=== PATIENT | male | born 1980 | race Two or more races ===

== ENCOUNTER 2024-03-01 12:45 | Inpatient (IN) | payer MEDICAID, OTHER ==
[~2024-03-01] VITALS: Ht 177.8 cm; Wt 114.5 kg
--- NOTE | 2024-03-01 13:50 | DVH ---
Date: 03/01/2024 01:15 PM Examination: XY KUB ABDOMEN SINGLE VIEW History: constipation Comparison: None TECHNIQUE: Frontal views of the abdomen was obtained. FINDINGS: Bowel gas pattern is unremarkable. Large stool burden. The lung bases are unremarkable. No acute osseous abnormality identified. IMPRESSION: Nonobstructive bowel gas pattern. Large stool burden.
[2024-03-01 14:09] LABS: Basophils # (auto) 0.1 10 ^3/uL (0-0.2); Basophils % (auto) 0.7 % (0.0-2.0); Eosinophils # (auto) 0.1 10 ^3/uL (0-0.8); Eosinophils % (auto) 1.2 % (0.0-7.0); Hemoglobin 15.1 g/dL (13.5-17.5); Lymphocytes % (auto) 34.1 % (10.0-50.0); Mean Corpuscular Hemoglobin 30.2 pg (28.0-32.0); Mean Corpuscular Hgb Conc. 34.4 g/dL (32.0-36.0); Mean Corpuscular Volume 87.8 fL (80.0-100.0); Monocytes # (auto) 0.7 10 ^3/uL (0-1.3); Monocytes % (auto) 7.6 % (0.0-12.0); Neutrophils # (auto) 4.9 10 ^3/uL (1.6-8.6); Neutrophils % (auto) 56.4 % (37.0-80.0); Nucleated Red Blood Cells % 0.1 %; Platelet Count (auto) 330 10^3/uL (140-450); Red Blood Cells 5.01 10^6/uL (4.5-5.90); Red Cell Distribution Width 14.2 % (11.8-14.3); White Blood Cell 8.7 10^3/uL (4.4-10.8)
[2024-03-01 14:16] LABS: Chloride 106 mmol/L (98-107); Sodium 141 mmol/L (136-145)
[2024-03-01 14:17] LABS: Anion Gap 6 (5-15); Calcium 10.2 mg/dL (8.7-10.4); Carbon Dioxide 29 mmol/L (20-31)
[2024-03-01 14:22] LABS: BUN/Creatinine Ratio 14.9 (10.0-20.0); Blood Urea Nitrogen 13 mg/dL (9-23); Glucose 101 mg/dL (74-106)
--- NOTE | 2024-03-01 15:55 | ED.PDOC ---
GI ASSESSMENT HPI Comments [age] he presents with a chief complaint of rectal bleeding. Reports he was constipated for two days and after self disimpact patient patient began to bleed Last bowel movement was yesterday and reported bright red blood No associated symptoms Denies fevers chills night sweats unintentional weight loss Denies nausea vomiting diarrhea Denies sick contact with similar symptoms Denies new foods/medications Chief Complaint: Constipation Time Seen by MD: 13:07 Primary Care Provider: NONE Reviewed Notes: Nurses Notes, Medications, Allergies Allergies: Coded Allergies: Penicillins (Verified Allergy, Unknown, 03/01/24) Information Source: Patient Mode of Arrival: Ambulatory Family History Family History: Reviewed,noncontributory to illness Social History Smoker: Non-Smoker Alcohol: Denies ETOH Use Drugs: Denies Drug Use All Other Systems: Reviewed and Negative (Per HPI) Physical Exam General Appearance: No Apparent Distress, Normal HEENT: Normal ENT Inspection, Pharynx Normal, TMs Normal Neck: Full Range of Motion, Non-Tender, Normal, Normal Inspection Respiratory: Chest Non-Tender, Lungs Clear, No Accessory Muscle Use, No Respiratory Distress, Normal Breath Sounds Cardiovascular: No Edema, No JVD, No Murmur, No Gallop, Normal Peripheral Pulses, Regular Rate/Rhythm Breast Exam: Deferred Gastrointestinal: No Organomegaly, Non Tender, No Pulsatile Mass, Normal Bowel Sounds, Soft Genitalia: Deferred Pelvic: Deferred Rectal: Other (No rectal tone. Bright red blood around the rectum) Extremities: No calf tenderness, Normal capillary refill, Normal inspection, Normal range of motion, Non-tender, No pedal edema Musculoskeletal : Apperance: Normal Neurologic: Alert, garment fitter II-XII nml as Tested, No Motor Deficits, Normal Affect, Normal Mood, No Sensory Deficits Cerebellar Function: Normal Reflexes: Normal Skin: Dry, Normal Color, Warm Lymphatic: No Adenopathy Was a procedure done? Was a procedure done?: No GI differential Dx Differential Diagnosis: Constipation, Anemia, Other (fissure,) X-Ray, Labs, Meds, VS Vital Signs Date Time Temp Pulse Resp B/P (MAP) Pulse Ox O2 Delivery O2 Flow Rate FiO2 03/01/24 15:44 72 18 98 Room Air 03/01/24 15:44 98.2 84 24 144/84 (104) 98 98.2 03/01/24 13:00 98.2 72 18 149/91 (110) 98 Lab Test 03/01/24 16:00 03/01/24 13:50 Range/Units White Blood Count Pending 8.7 4.4-10.8 10^3/uL Red Blood Count Pending 5.01 4.5-5.90 10^6/uL Hemoglobin Pending 15.1 13.5-17.5 g/dL Hematocrit Pending 44.0 41.0-53.0 % Mean Corpuscular Volume Pending 87.8 80.0-100.0 fL Mean Corpuscular Hemoglobin Pending 30.2 28.0-32.0 pg Mean Corpuscular Hemoglobin Concent Pending 34.4 32.0-36.0 g/dL Red Cell Distribution Width Pending 14.2 11.8-14.3 % Platelet Count Pending 330 140-450 10^3/uL Mean Platelet Volume Pending 7.4 6.9-10.8 fL Neutrophils (%) (Auto) Pending 56.4 37.0-80.0 % Lymphocytes (%) (Auto) Pending 34.1 10.0-50.0 % Monocytes (%) (Auto) Pending 7.6 0.0-12.0 % Basophils (%) (Auto) Pending 0.7 0.0-2.0 % Neutrophils # (Auto) Pending 4.9 1.6-8.6 10 ^3/uL Lymphocytes # (Auto) Pending 3.0 0.4-5.4 10 ^3/uL Monocytes # (Auto) Pending 0.7 0-1.3 10 ^3/uL Sodium Level Pending 141 136-145 mmol/L Potassium Level Pending 4.0 3.5-5.1 mmol/L Chloride Level Pending 106 98-107 mmol/L Carbon Dioxide Level Pending 29 20-31 mmol/L Anion Gap Pending 6 5-15 Blood Urea Nitrogen Pending 13 9-23 mg/dL Creatinine Pending 0.87 0.700-1.30 mg/dL Glomerular Filtration Rate Calc Pending 110 >90 mL/min BUN/Creatinine Ratio Pending 14.9 10.0-20.0 Serum Glucose Pending 101 74-106 mg/dL Calcium Level Pending 10.2 8.7-10.4 mg/dL Eosinophils (%) (Auto) 1.2 0.0-7.0 % Eosinophils # (Auto) 0.1 0-0.8 10 ^3/uL Basophils # (Auto) 0.1 0-0.2 10 ^3/uL Nucleated Red Blood Cells 0.1 % X-Ray, Labs, Meds, VS Comment This is a pleasant 43-year-old paraplegic who presents for rectal bleeding after a perform a self disimpaction at home. Bloody continous at this time. Amount moderate. Unable to visualize source of bleeding. Will admit for higher level of care. Time of 1ST Reevaluation: 17:05 Reevaluation 1ST: Unchanged Patient Education/Counseling: Diagnosis, Treatment Family Education/Counseling: Diagnosis, Treatment Departure 1 Departure Time of Disposition: 17:04 Impression: Primary Impression: Hematochezia Disposition: 09 ADMITTED INPATIENT Condition: Fair Critical Care Note Critical Care Time?: No Stability Stability form required: No Heart Score Heart Score: Heart Score Response (Comments) Value History N/A 0 EKG N/A 0 Age N/A 0 Risk Factors N/A 0 Troponin N/A 0 Total 0 MARIA M MATHUR NP Mar 01, 2024 15:55
[2024-03-01 17:15] LABS: Chloride 105 mmol/L (98-107); Potassium 4.2 mmol/L (3.5-5.1)
[2024-03-01 17:16] LABS: Calcium 10.5 mg/dL (8.7-10.4); Carbon Dioxide 29 mmol/L (20-31)
[2024-03-01 17:21] LABS: BUN/Creatinine Ratio 16.7 (10.0-20.0); Blood Urea Nitrogen 15 mg/dL (9-23); Glucose 115 mg/dL (74-106)
[2024-03-01 17:22] LABS: Anion Gap 7 (5-15); Sodium 141 mmol/L (136-145)
[2024-03-01 17:42] LABS: Urine WBC None Seen /hpf (0 - 3)
[2024-03-01 17:59] LABS: Urine Bacteria FEW /hpf (None Seen); Urine Blood Negative /uL (Negative); Urine Clarity Clear (Clear); Urine Color Colorless (Yellow); Urine Protein, UAD Negative (Negative); Urine Specific Gravity 1.007 (1.001-1.035); Urine Urobilinogen Normal (Negative); Urine pH 6.5 (5.0-9.0)
[2024-03-01 18:40] LABS: Basophils # (auto) 0 10 ^3/uL (0-0.2); Basophils % (auto) 0.5 % (0.0-2.0); Eosinophils # (auto) 0.1 10 ^3/uL (0-0.8); Hematocrit 44.1 % (41.0-53.0); Hemoglobin 15.2 g/dL (13.5-17.5); Lymphocytes # (auto) 2.9 10 ^3/uL (0.4-5.4); Lymphocytes % (auto) 31.1 % (10.0-50.0); Mean Corpuscular Hemoglobin 30.3 pg (28.0-32.0); Mean Corpuscular Hgb Conc. 34.4 g/dL (32.0-36.0); Mean Corpuscular Volume 88.1 fL (80.0-100.0); Monocytes # (auto) 0.6 10 ^3/uL (0-1.3); Monocytes % (auto) 6.2 % (0.0-12.0); Neutrophils # (auto) 5.7 10 ^3/uL (1.6-8.6); Neutrophils % (auto) 61.2 % (37.0-80.0); Platelet Count (auto) 342 10^3/uL (140-450); Red Cell Distribution Width 14.2 % (11.8-14.3); White Blood Cell 9.2 10^3/uL (4.4-10.8)
[2024-03-01] MEDS: BACLOFEN 10 MG TAB PO ONE (18:49)
[2024-03-01 19:30] VITALS: PULSE 81; RESP 18; O2SAT 96
[2024-03-01] MEDS ORDERED: HYDROcodone-ACET 5/325MG TAB PO PRN (22:15)
[2024-03-01] MEDS ORDERED: MORPHINE SULFATE INJ 2 MG/ml SYRG IV PRN (22:15)
[2024-03-01] MEDS ORDERED: ACETAMINOPHEN 325 MG TAB PO PRN (22:15)
[2024-03-01] MEDS ORDERED: NITROGLYCERIN 0.4 MG SL TAB SL PRN (22:15)
[2024-03-01] MEDS ORDERED: ONDANSETRON HCL 4 MG/2 ML VIAL IV PRN (22:15)
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
[2024-03-02] VITALS (8 sets, daily range): BP systolic 96–126; BP diastolic 55–72; PULSE 64–75; RESP 17–19; TEMP 97.8–98.6; O2SAT 96–99
[2024-03-02] MEDS: LACTULOSE 20Gm/30ML SOLN PO ONE (00:21)
[2024-03-02] MEDS: SODIUM CHLORIDE 0.9% 1,000 ML IV SCH (00:21)
[2024-03-02] MEDS ORDERED: hydrALAZINE HCL 20 MG/ML VL IV PRN (02:00)
[2024-03-02 05:40] LABS: Basophils # (auto) 0.1 10 ^3/uL (0-0.2); Basophils % (auto) 0.7 % (0.0-2.0); Eosinophils # (auto) 0.1 10 ^3/uL (0-0.8); Eosinophils % (auto) 1.5 % (0.0-7.0); Hematocrit 45.3 % (41.0-53.0); Hemoglobin 15.3 g/dL (13.5-17.5); Lymphocytes # (auto) 2.6 10 ^3/uL (0.4-5.4); Lymphocytes % (auto) 34.3 % (10.0-50.0); Mean Corpuscular Hemoglobin 29.8 pg (28.0-32.0); Mean Corpuscular Hgb Conc. 33.7 g/dL (32.0-36.0); Mean Corpuscular Volume 88.4 fL (80.0-100.0); Monocytes # (auto) 0.6 10 ^3/uL (0-1.3); Monocytes % (auto) 8.6 % (0.0-12.0); Neutrophils # (auto) 4.1 10 ^3/uL (1.6-8.6); Neutrophils % (auto) 54.9 % (37.0-80.0); Nucleated Red Blood Cells % 0.1 %; Platelet Count (auto) 330 10^3/uL (140-450); Red Blood Cells 5.12 10^6/uL (4.5-5.90); Red Cell Distribution Width 14.2 % (11.8-14.3); White Blood Cell 7.5 10^3/uL (4.4-10.8)
[2024-03-02] MEDS: SODIUM CHLOR 0.9% PF (SALINE LOCK) 10ML VIAL/SYR IV SCH (05:50)
[2024-03-02 06:01] LABS: Alanine Aminotransferase 74 U/L (7-40); Alkaline Phosphatase 90 U/L (46-116); Anion Gap 4 (5-15); Aspartate Aminotransferase 37 U/L (13-40); BUN/Creatinine Ratio 14.3 (10.0-20.0); Blood Urea Nitrogen 14 mg/dL (9-23); Calcium 9.9 mg/dL (8.7-10.4); Carbon Dioxide 29 mmol/L (20-31); Chloride 108 mmol/L (98-107); Glucose 117 mg/dL (74-106); Potassium 4.3 mmol/L (3.5-5.1); Sodium 141 mmol/L (136-145)
[2024-03-02 06:02] LABS: Albumin 4.6 g/dL (3.2-4.8); Bilirubin, Total 0.7 mg/dL (0.2-1.0); Total Protein 7.1 g/dL (5.7-8.2)
[2024-03-02] MEDS: PANTOPRAZOLE 40 MG TAB PO SCH (06:44)
[2024-03-02] MEDS: DOCUSATE SOD 100 MG CAP PO PRN (06:44)
[2024-03-02] MEDS: ENOXAPARIN SOD 40 MG/0.4 ML SYRINGE SC SCH (10:35)
[2024-03-02] MEDS ORDERED: LIDOCAINE 2% TOPICAL JELLY 5 ML URJT TOP PRN (11:45)
[2024-03-02] MEDS: FLEET ENEMA(ADULT) 135 ML PR ONE (15:13)
[2024-03-02] MEDS: POLYETHYLENE GLYCOL 17 GM PWDR PO ONE (20:09)
[2024-03-02] MEDS: BISACODYL 10 MG RECT SUPP PR SCH (20:09)
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
[2024-03-02] MEDS: PSYLLIUM PWD 5.8GM PKG GT SCH (22:00)
[2024-03-02] MEDS ORDERED: NITROGLYCERIN 2% OINT 1GM PKG TD SCH (22:00)
[2024-03-03 05:00] VITALS: BP 145/80; PULSE 60; RESP 19; TEMP 97.8; O2SAT 98
[2024-03-03 08:00] VITALS: PULSE 62; PULSE 66; RESP 18; O2SAT 98
[2024-03-03 08:40] VITALS: BP 111/80; PULSE 61; RESP 18; TEMP 97.8; O2SAT 97
[2024-03-03] MEDS: POLYETHYLENE GLYCOL 17 GM PWDR PO SCH (10:00)
[2024-03-03 12:35] VITALS: BP 115/73; PULSE 62; RESP 18; TEMP 98.4; O2SAT 98
[2024-03-03] MEDS ORDERED: MINE1ENE PR (12:50)
[2024-03-03] MEDS ORDERED: CALC625T13 PO (12:50)
[2024-03-03] MEDS ORDERED: SENN-62 PO (12:50)
--- NOTE | 2024-03-03 12:59 | DVHDS2 ---
Discharge Summary Date of Admission Mar 01, 2024 at 22:02 Date of Discharge: Mar 03, 2024 Admitting Diagnosis fecal impaction Labs/Diagnostic Data: Laboratory Results Test 03/02/24 05:29 03/01/24 17:40 White Blood Count 7.5 10^3/uL (4.4-10.8) Red Blood Count 5.12 10^6/uL (4.5-5.90) Hemoglobin 15.3 g/dL (13.5-17.5) Hematocrit 45.3 % (41.0-53.0) Mean Corpuscular Volume 88.4 fL (80.0-100.0) Mean Corpuscular Hemoglobin 29.8 pg (28.0-32.0) Mean Corpuscular Hemoglobin Concent 33.7 g/dL (32.0-36.0) Red Cell Distribution Width 14.2 % (11.8-14.3) Platelet Count 330 10^3/uL (140-450) Mean Platelet Volume 7.3 fL (6.9-10.8) Neutrophils (%) (Auto) 54.9 % (37.0-80.0) Lymphocytes (%) (Auto) 34.3 % (10.0-50.0) Monocytes (%) (Auto) 8.6 % (0.0-12.0) Eosinophils (%) (Auto) 1.5 % (0.0-7.0) Basophils (%) (Auto) 0.7 % (0.0-2.0) Neutrophils # (Auto) 4.1 10 ^3/uL (1.6-8.6) Lymphocytes # (Auto) 2.6 10 ^3/uL (0.4-5.4) Monocytes # (Auto) 0.6 10 ^3/uL (0-1.3) Eosinophils # (Auto) 0.1 10 ^3/uL (0-0.8) Basophils # (Auto) 0.1 10 ^3/uL (0-0.2) Nucleated Red Blood Cells 0.1 % Sodium Level 141 mmol/L (136-145) Potassium Level 4.3 mmol/L (3.5-5.1) Chloride Level 108 mmol/L (98-107) Carbon Dioxide Level 29 mmol/L (20-31) Anion Gap 4 (5-15) Blood Urea Nitrogen 14 mg/dL (9-23) Creatinine 0.98 mg/dL (0.700-1.30) Glomerular Filtration Rate Calc 98 mL/min (>90) BUN/Creatinine Ratio 14.3 (10.0-20.0) Serum Glucose 117 mg/dL (74-106) Hemoglobin A1c 6.4 % A1C (<5.7) Calcium Level 9.9 mg/dL (8.7-10.4) Total Bilirubin 0.7 mg/dL (0.2-1.0) Aspartate Amino Transferase (AST) 37 U/L (13-40) Alanine Aminotransferase (ALT) 74 U/L (7-40) Alkaline Phosphatase 90 U/L (46-116) Total Protein 7.1 g/dL (5.7-8.2) Albumin 4.6 g/dL (3.2-4.8) Vitamin B12 Level 632 pg/mL (211-911) Vitamin D 25-Hydroxy 29.9 ng/mL (30.0-100) Thyroid Stimulating Hormone (TSH) 3.06 uIU/mL (0.55-4.78) Urine Color Colorless (Yellow) Urine Clarity Clear (Clear) Urine pH 6.5 (5.0-9.0) Urine Specific [place] 1.007 (1.001-1.035) Urine Protein Negative (Negative) Urine Ketones Negative (Negative) Urine Blood Negative /uL (Negative) Urine Nitrite Negative (Negative) Urine Bilirubin Negative (Negative) Urine Urobilinogen Normal mg/dL (Negative) Urine Leukocyte Esterase Negative /uL (Negative) Urine RBC 1 /hpf (0 - 3) Urine WBC None seen /hpf (0 - 3) Urine Squamous Epithelial Cells Few /hpf (<5) Urine Bacteria Few /hpf (None Seen) Urine Glucose Normal mg/dL (Normal) Other Laboratory Tests 03/02/24 05:29 Brief Hx & Hospital Course: 43 years old wheelchair-bound paraplegic male presented to the ED with a chief complaint of constipation and rectal bleeding 1 time prior to this admission. According to the patient he was constipated for 2 days and after self disimpact the patient began to bleed and last bowel movement was yesterday and reported bright red blood. Upon exam there is no anal fistula/fissure. CT shows fecal impaction. This is complicated given that patient has history of paralysis. Patient has been performing fecal disimpaction on his own. Patient is given enema x2, suppository q.h.s. and a bowel regimen consisting of docusate, MiraLax. We held off magnesium citrate, senna, prokinetic agents (Reglan). On day 2 patient had 1 large BM., he is tolerating p.o. and feeling much improved and does not have abdominal pain in the longer. We will follow the plan below outpatient. diagnosis : fecal impaction; constipation with complication of paralysis; discharge plan - ducolax suppositores at night x 2 weeks, then as needed. - fleet enema 2x/day for 1 week. (before sleep and insertion of suppository and after waking/breakfast) - increase fiber in diet. take metamucil daily. senokot S for 2 weeks - magnesium citrate PO GT as needed - f/u with PCP - refer to GI for constipation with complication of paralysis. may need prokinetic agents. Visitation and planning required 35 minutes Condition at Discharge: Fair Final Diagnosis/Problems List fecal impaction; constipation with complication of paralysis; Discharge Disposition: Home Discharge Instruct/Medications Diet: See Comment Diet comment: high fiber diet Activity: No Restrictions, As Tolerated Follow Up/Referral: GI, PCP Medications: as in dc instructions. Discharge Statement: "Patient was advised to return to the ER or call 911 if any headaches, dizziness, shortness of breath, chest pain, abdominal pain, bleeding, fevers, or worsening of medical condition. Patient was counseled about treatment plan, medications, possible side effects, patientverbalized understanding. All questions were answered to the best of my ability. This discharge took greater then 30 minutes in planning, reviewing documentation, counseling the patient, and discussing with other team members." ASSESSMENT ASSESSMENT Assessment fecal impaction; constipation with complication of paralysis; Date of Service: Mar 03, 2024 Billing Provider: RUDY HOLLAND MD Common Visit Codes: [id number] DISCH DAY >30min RUDY HOLLAND MD Mar 03, 2024 12:59
[2024-03-03] MEDS ORDERED: TADA5TAB11 PO (14:15)
[2024-03-03 14:48] VITALS: BP 129/80; PULSE 68; RESP 18; TEMP 36.9; O2SAT 96
== END 2024-03-03 15:30 | disposition home or self-care (01) | DRG 247 ==
LOC: ER 12:45 → OVERFLOW 22:02 → EAST 23:55
PROVIDERS: ATTEND Student in an Organized Health Care Education/Training Program
DX: K56.41 Fecal impaction (principal); G82.20 Paraplegia, unspecified; S36.63XA Laceration of rectum, initial encounter; K62.5 Hemorrhage of anus and rectum; E83.52 Hypercalcemia; Z88.0 Allergy status to penicillin; Z99.3 Dependence on wheelchair; R45.88 Nonsuicidal self-harm
CPT/HCPCS: 36415; 74018; 80048; 80053; 81001; 82306; 82607; 83036; 84443; 85025; G0378

== ENCOUNTER 2024-09-15 08:34 | Emergency (ER) | payer MEDICAID ==
[~2024-09-15] VITALS: Ht 182.9 cm; Wt 109.1 kg
[~2024-09-15 08:34] MED LIST: CALC625T13 PO; MINE1ENE PR; SENN-62 PO; TADA5TAB11 PO
[2024-09-15 08:59] VITALS: BP 123/71; PULSE 102; RESP 16; TEMP 98.8; O2SAT 97
--- NOTE | 2024-09-15 09:06 | ED.PDOC ---
Julia. trauma (HPI) HPI Comments A 43 YEAR OLD MALE PRESENTS TO THE ED WITH COMPLAINT OF NECK PAIN AND MIDDLE BACK PAIN STATUS POST FALL. PATIENT STATES HE ACCIDENTALLY FELL 4 DAYS AGO WHILE USING HIS WALKER AND HAS BEEN EXPERIENCING MIDDLE BACK PAIN AND NECK PAIN SINCE THIS FALL INJURY. PATIENT NOTES HE ALSO USES A SELF CATHETER AND NOTICED THAT HIS URINE HAS BEEN DARKER FOR THE LAST 3 DAYS AND WOULD LIKE TO BE EVALUATED FOR A POSSIBLE UTI. PATIENT DENIES DYSURIA, HEMATURIA, HEAD INJURY, LOC, FEVER, CHILLS, SHORTNESS OF BREATH, CHEST PAIN, ABDOMINAL PAIN, NAUSEA, VOMITING, HEADACHE, OR OTHER COMPLAINTS. NO OTHER SYMPTOMS OR MODIFYING FACTORS AT THIS TIME. PATIENT IS ALERT, ORIENTED X 4, AND HAS STEADY GAIT. Chief Complaint: Fall Injury Time Seen by MD: 08:45 Primary Care Provider: NONE Reviewed notes: Nurses Notes, Medications, Allergies Allergies: Coded Allergies: Penicillins (Verified Allergy, Unknown, 03/01/24) Home Meds Active Scripts Sulfamethoxazole W/Trimethopri (Bactrim Ds Tablet) 1 Tab Tb, 1 TAB PO BID, #20 TAB Prov:KRYSTLE GLASS 09/15/24 Ibuprofen (Ibuprofen) 800 Mg Tab, 1 TAB PO TID, #30 TAB Prov:KRYSTLE GLASS 09/15/24 Tadalafil (Cialis) 5 Mg Tab, 5 MG PO DAILYPRN PRN for 14 Days, #14 TAB Prov:RUDY HOLLAND MD 03/03/24 Sennosides-Docusate Sodium (Senokot S) 1 Tab Tab, 1 TAB PO BID for 14 Days, #28 TAB 0 Refills Prov:RUDY HOLLAND MD 03/03/24 Calcium Polycarbophil (Fiber Tabs) 625 Mg Tab, 625 MG PO DAILY for 30 Days, #30 TAB 0 Refills Prov:RUDY HOLLAND MD 03/03/24 Mineral Oil, Extra Heavy (Enema Mineral Oil Ready-T) 100 % Keshia, 100 % [place] BID for 7 Days, #14 EA 0 Refills Prov:RUDY HOLLAND MD 03/03/24 Information Source: Patient Mode of Arrival: Wheelchair Severity: Moderate Timing: Days Duration: Since onset, Days Prehospital treatment: None Location: Back, Neck Location of neck pain: (R) Posterior, (L) Posterior Location of laceration: None Mechanism: Fall Associated signs and symtoms: None Past Medical History Past Medical History (Other): PARAPLEGIC Surgical History: Denies all surgeries Family History Family History: Reviewed,noncontributory to illness Social History Smoker: Non-Smoker Alcohol: Denies ETOH Use Drugs: Denies Drug Use Lives In: Home Constitutional: denies: chills, diaphoresis, fatigue, fever, malaise, sweats, weakness, others EENTM: denies: blurred vision, double vision, ear bleeding, ear discharge, ear drainage, ear pain, ear ringing, eye pain, eye redness, hearing loss, mouth pain, mouth swelling, nasal discharge, nose bleeding, nose congestion, nose pain, photophobia, tearing, throat pain, throat swelling, voice changes, others Respiratory: denies: cough, hemoptysis, orthopnea, SOB at rest, shortness of breath, SOB with excertion, stridor, wheezing, others Cardiovascular: denies: chest pain, dizzy spells, diaphoresis, Dyspnea on exertion, edema, irregular heart beat, left arm pain, lightheadedness, palpitations, PND, syncope, others Gastrointestinal: denies: abdomen distended, abdominal pain, blood streaked bowels, constipated, diarrhea, dysphagia, difficulty swallowing, hematemesis, melena, nausea, poor appetite, poor fluid intake, rectal bleeding, rectal pain, vomiting, others Genitourinary: reports: burning, dysuria, hematuria; denies: flank pain, frequency, incontinence, penile discharge, penile sore, pain, testicle pain, testicle swelling, urgency, others Neurological: denies: dizziness, fainting, headache, left sided numbness, left sided weakness, numbness, paresthesia, pre-existing deficit, right sided numbness, right sided weakness, seizure, speech problems, tingling, tremors, weakness, others Musculoskeletal: reports: back pain (MIDDLE BACK PAIN), muscle pain, neck pain; denies: gout, joint pain, joint swelling, muscle stiffness, others Integumetry: denies: bruises, change in color, change in hair/nails, dryness, laceration, lesions, lumps, rash, wounds, others Allergic/Immunocompromised: denies: Difficulty Healing, Frequent Infections, Hives, Itching, others Hematologic/Lymphatic: denies: anemia, blood clots, easy bleeding, easy bruising, swollen glands, others Endocrine: denies: excessive hunger, excessive sweating, excessive thirst, excessive urination, flushing, intolerance to cold, intolerance to heat, unexplained weight gain, unexplained weight loss, others Psychiatric: denies: anxiety, bipolar disorder, depression, hopeless, panic disorder, schizophrenia, sleepless, suicidal, others All Other Systems: Reviewed and Negative Physical Exam General Appearance: No Apparent Distress, Obese HEENT: Normal ENT Inspection, PERRL/EOMI, Pharynx Normal, TMs Normal Neck: Full Range of Motion, Normal Inspection, Supple, Tender Lateral (MUSCLE SPASM ON POSTERIOR NECK, NO BONY TENDERNESS, SWELLING AND DEFORMITY. ) Respiratory: Chest Non-Tender, Lungs Clear, No Accessory Muscle Use, No Respiratory Distress, Normal Breath Sounds Cardiovascular: No Edema, No JVD, No Murmur, No Gallop, Normal Peripheral Pulses, Regular Rate/Rhythm Breast Exam: Deferred Gastrointestinal: No Organomegaly, Non Tender, No Pulsatile Mass, Normal Bowel Sounds, Soft Genitalia: Deferred Pelvic: Deferred Rectal: Deferred Extremities: No calf tenderness, Normal capillary refill, Normal inspection, Normal range of motion, Non-tender, No pedal edema Musculoskeletal : Location: Bilateral Extremity Location: Back Apperance: Tenderness (AND MUSCLE SPASM ON MIDDLE BACK, NO BONY TENDERNESS, SWELLING AND DEFORMITY. ) Neurologic: Alert, ladle liner helper II-XII nml as Tested, No Motor Deficits, Normal Affect, Normal Mood, No Sensory Deficits Cerebellar Function: Normal Reflexes: Normal Skin: Dry, Normal Color, Warm Peripheral Pulses: 2+ carotid (R), 2+ carotid (L) Lymphatic: No Adenopathy Was a procedure done? Was a procedure done?: No Differential Diagnosis Multiple Trauma: Spine Injury, Contusion, Other (MIDDLE BACK STRAIN, UTI) Neck Injury: Cervical Muscle Spasm, Cervical Sprain, Cervical Strain, Cervical Fracture X-Ray, Labs, Meds, VS Vital Signs Date Time Temp Pulse Resp B/P (MAP) Pulse Ox O2 Delivery O2 Flow Rate FiO2 09/15/24 08:59 98.8 102 16 123/71 (88) 97 98.8 09/15/24 08:59 102 16 97 Room Air 09/15/24 08:40 98.8 102 16 123/71 (88) 97 98.8 Lab Test 09/15/24 09:47 09/15/24 09:11 Range/Units POC Glucose 221 H 70-106 mg/dl Urine Color Yellow Yellow Urine Clarity Turbid H Clear Urine pH 6.0 5.0-9.0 Urine Specific [place] 1.016 1.001-1.035 Urine Protein Trace H Negative Urine Ketones 2+ H Negative Urine Blood Negative Negative /uL Urine Nitrite 2+ H Negative Urine Bilirubin Negative Negative Urine Urobilinogen 4 H Negative mg/dL Urine Leukocyte Esterase 3+ Negative /uL Urine RBC 1 0 - 3 /hpf Urine Microscopic WBC 126 H 0-3 /HPF Urine Squamous Epithelial Cells Few <5 /hpf Urine Bacteria Mod H None Seen /hpf Urine Mucus Few None Seen Urine Yeast (Budding) Occasional None Seen /hpf Urine Glucose 4+ H Normal mg/dL Current Medications Medications (Trade) Dose Ordered Sig/Argelia Route Start Time Stop Time Status Last Admin Ceftriaxone Sodium (Rocephin) 1,000 mg ONCE ONCE IM 09/15/24 10:00 09/15/24 10:03 DC 09/15/24 10:07 INDICATION: FALL COMPARISON: None TECHNIQUE: 3 views of the cervical spine were obtained. FINDINGS: The cervical vertebral alignment is normal. The predental space is normal. The intervertebral disc spaces are well-maintained. No significant facet arthropathy is noted. No acute fracture, vertebral compression deformity or aggressive osseous lesions. The imaged lung apices are unremarkable. IMPRESSION: 1. No acute fracture. ATED BY: AMBER OLSON MD DICTATED DATE/TIME: 09/15/24954 SIGNED BY: AMBER OLSON MD SIGNED DATE/TIME: 09/15/24954 CC: INDICATION: FALL TECHNIQUE: AP and lateral views of the thoracic spine were obtained. COMPARISON: None FINDINGS/IMPRESSION: 1. Postoperative changes of posterior spinal fusion with pedicle screws and rods T4-T8, likely spanning a chronic fracture, not well characterized here. 2. No fractures are identified about the lower thoracic spine. 3. Mild thoracic scoliosis. ATED BY: BENNIE CHRISTY MD DICTATED DATE/TIME: 09/15/24958 SIGNED BY: BENNIE CHRISTY MD SIGNED DATE/TIME: 09/15/24958 CC: X-Ray, Labs, Meds, VS Comment EXTERNAL MEDICAL RECORDS REVIEWED: [NONE] INDEPENDENT HISTORIANS: [NONE] SOCIAL DETERMINANTS OF HEALTH: [NONE] LABS ORDERED: UA REVIEWED AND INTERPRETED RESULTS: NITRITE 2+. LEUKO 3+, URINE WBC 126, UGLU 4+ IMAGING ORDERED: XR C-SPINE, XR T-SPINE TREATMENTS ORDERED: ROCEPHIN 1G IM PROCEDURES PERFORMED: NONE CRITICAL CARE TIME: NONE I HAVE DISCUSSED THE PATIENT WITH THE ATTENDING PHYSICIAN DR. METZGER AND HE AGREES WITH THE PATIENT'S PLAN OF CARE AND DISPOSITION. BASED ON HISTORY OF PRESENT ILLNESS, AND PHYSICAL EXAM, PATIENT WILL BE DISCHARGED HOME. DISCUSSED PLAN FOR DISCHARGE HOME WITH RX [SEPTRA DS AND MOTRIN ]. MEDICATION WARNINGS GIVEN. SHARED DECISION MAKING: PATIENT INSTRUCTED TO FOLLOW UP WITH PRIMARY CARE PROVIDER IN 1-2 DAYS FOR RE-EVALUATION OF SYMPTOMS. PATIENT VERBALIZES UNDERSTANDING TO RETURN TO ED FOR NEW OR WORSENING SYMPTOMS OR IF FOLLOW UP WITH PCP CANNOT BE OBTAINED. PATIENT FEELS COMFORTABLE GOING HOME AT THIS TIME. ALL QUESTIONS ADDRESSED AT TIME OF DISCHARGE. Images Reviewed?: Images reviewed and evaluated by me Time of 1ST Reevaluation: 10:20 Reevaluation 1ST: Improved Patient Education/Counseling: Diagnosis, Treatment, Need For Follow Up Family Education/Counseling: Diagnosis, Treatment, Need For Follow Up Medical Screening: No EMC Exist At This Time Departure 1 Departure Time of Disposition: 10:20 Impression: Primary Impression: Cervical muscle strain Qualified Codes: S16.1XXA - Strain of muscle, fascia and tendon at neck leve l, initial encounter Additional Impressions: Strain of mid-back Qualified Codes: S29.012A - Strain of muscle and tendon of back wall of thorax, initial encounter Status post fall Acute UTI (urinary tract infection) Disposition: HOME / SELF CARE / HOMELESS Condition: Stable Additional Instructions: FOLLOW-UP WITH PCP IN 1 TO 2 DAYS. TAKE MEDICATIONS PRESCRIBED. RETURN TO ED FOR ANY NEW OR WORSENING SYMPTOMS. e-Prescriptions Sulfamethoxazole W/Trimethopri (Bactrim Ds Tablet) 1 Tab Tb 1 TAB PO BID, #20 TAB Prov: KRYSTLE GLASS 09/15/24 Ibuprofen (Ibuprofen) 800 Mg Tab 1 TAB PO TID, #30 TAB Prov: KRYSTLE GLASS 09/15/24 Discharged With: Self Critical Care Note Critical Care Time?: No Stability Stability form required: No I personally scribed for KRYSTLE GLASS ([email or web address]) on 09/15/24 at 09:06. Electronically submitted by Dwain Go ([employer]). I personally scribed for KRYSTLE GLASS ([email or web address]) on 09/15/24 at 10:02. Electronically submitted by Dwain Go ([email or web address]). I personally scribed for KRYSTLE GLASS ([email or web address]) on 09/15/24 at 10:04. Electronically submitted by Dwain Go ([employer]). KRYSTLE GLASS September 15, 2024 09:06
[2024-09-15 09:27] LABS: Urine Bacteria MOD /hpf (None Seen); Urine Blood Negative /uL (Negative); Urine Budding Yeast OCCASIONAL /hpf (None Seen); Urine Clarity Turbid (Clear); Urine Color Yellow (Yellow); Urine Mucus FEW (None Seen); Urine Protein, UAD TRACE (Negative); Urine Specific Gravity 1.016 (1.001-1.035); Urine Squamous Epithelial Cell FEW /hpf (<5); Urine Urobilinogen 4 mg/dL (Negative); Urine WBC 126 /HPF (0-3)
--- NOTE | 2024-09-15 09:58 | DVH ---
INDICATION: FALL COMPARISON: None TECHNIQUE: 3 views of the cervical spine were obtained. FINDINGS: The cervical vertebral alignment is normal. The predental space is normal. The intervertebral disc spaces are well-maintained. No significant facet arthropathy is noted. No acute fracture, vertebral compression deformity or aggressive osseous lesions. The imaged lung apices are unremarkable. IMPRESSION: 1. No acute fracture.
--- NOTE | 2024-09-15 10:01 | DVH ---
INDICATION: FALL TECHNIQUE: AP and lateral views of the thoracic spine were obtained. COMPARISON: None FINDINGS/IMPRESSION: 1. Postoperative changes of posterior spinal fusion with pedicle screws and rods T4-T8, likely spanni ng a chronic fracture, not well characterized here. 2. No fractures are identified about the lower thoracic spine. 3. Mild thoracic scoliosis.
[2024-09-15] MEDS: cefTRIAXone SOD 1,000 MG VL IM ONE (10:07)
[2024-09-15] MEDS ORDERED: IBUP-1456 PO (10:12)
[2024-09-15] MEDS ORDERED: BACDST PO (10:12)
== END 2024-09-15 10:16 | disposition home or self-care (01) ==
LOC: ER 08:34
DX: S16.1XXA Strain of muscle, fascia and tendon at neck level, initial encounter (principal); S29.012A Strain of muscle and tendon of back wall of thorax, initial encounter; Z79.899 Other long term (current) drug therapy; Z88.0 Allergy status to penicillin; W18.39XA Other fall on same level, initial encounter; Y93.89 Activity, other specified; Y92.89 Other specified places as the place of occurrence of the external cause; Y99.8 Other external cause status
CPT/HCPCS: 72040; 72070; 81001; 82947; 96372; 99284; J0696; 82962

== ENCOUNTER 2024-11-16 10:18 | Emergency (ER) | payer MEDICAID ==
[~2024-11-16] VITALS: Ht 182.9 cm; Wt 111.4 kg
[~2024-11-16 10:18] MED LIST changes: +BACDST PO; +IBUP-1456 PO
--- NOTE | 2024-11-16 11:15 | ED.PDOC ---
History of Present Illness HPI Comments THIS IS A 44 YEAR OLD MALE PRESENTING TO THE ED WITH CHIEF COMPLAINT OF HEADACHE. PATIENT REPORTS THAT HE HAS BEEN EXPERIENCING A LEFT SIDED HEADACHE WITH ASSOCIATED LEFT EAR PAIN AND FEVER FOR THE PAST 3 DAYS. PATIENT RELAYS THAT HIS BP HAS BEEN ELEVATED RECENTLY, BUT HAS NO HISTORY OF HTN. PATIENT STATES T HAT HE TOOK A HALF DOSE OF HIS FRIEND'S BP MEDICATION TODAY, WHICH NORMALIZED HIS BP TODAY. PATIENT DENIES ANY NAUSEA, VOMITING, NUMBNESS, WEAKNESS, CHEST PAIN, SOB, DIZZINESS, OR SYNCOPE. NO OTHER SYMPTOMS REPORTED AT THIS TIME OF CARE. Chief Complaint: Headache Time Seen by MD: 11:14 Primary Care Provider: QUINCY Reviewed Notes: Nurses Notes, Medications, Allergies Allergies: Coded Allergies: Penicillins (Verified Allergy, Unknown, 03/01/24) Home Meds Active Scripts Ciprofloxacin Hcl (Cipro) 500 Mg Tab, 1 TAB PO BID, #20 TAB Prov:KRYSTLE GLASS 11/16/24 Mmkmachk-Pbgvmvrug-Le (Otic) (Cortisporin Otic Susp) [address], 4 DROP EACH EAR TID, #10 ML Prov:KRYSTLE GLASS 11/16/24 Sulfamethoxazole W/Trimethopri (Bactrim Ds Tablet) 1 Tab Tb, 1 TAB PO BID, #20 TAB Prov:KRYSTLE GLASS 09/15/24 Ibuprofen (Ibuprofen) 800 Mg Tab, 1 TAB PO TID, #30 TAB Prov:KRYSTLE GLASS 09/15/24 Tadalafil (Cialis) 5 Mg Tab, 5 MG PO DAILYPRN PRN for 14 Days, #14 TAB Prov:RUDY HOLLAND MD 03/03/24 Sennosides-Docusate Sodium (Senokot S) 1 Tab Tab, 1 TAB PO BID for 14 Days, #28 TAB 0 Refills Prov:RUDY HOLLAND MD 03/03/24 Calcium Polycarbophil (Fiber Tabs) 625 Mg Tab, 625 MG PO DAILY for 30 Days, #30 TAB 0 Refills Prov:RUDY HOLLAND MD 03/03/24 Mineral Oil, Extra Heavy (Enema Mineral Oil Ready-T) 100 % Keshia, 100 % [place] BID for 7 Days, #14 EA 0 Refills Prov:RUDY HOLLAND MD 03/03/24 Information Source: Patient Mode of Arrival: Wheelchair Severity: Moderate Timing: Days Duration: Since onset, Days Prehospital treatment: None Medication Refill: For: Other (LEHEADACHE AND LEFT EAR PAIN ) Past Medical History PAST MEDICAL HISTORY: UTI'S Past Medical History (Other): PELIPLEGIC Surgical History: Denies all surgeries Family History Family History: Reviewed,noncontributory to illness Social History Smoker: Non-Smoker Alcohol: Denies ETOH Use Drugs: Denies Drug Use Lives In: Home Constitutional: reports: fever; denies: chills, diaphoresis, fatigue, malaise, sweats, weakness, others EENTM: reports: ear pain; denies: blurred vision, double vision, ear bleeding, ear discharge, ear drainage, ear ringing, eye pain, eye redness, hearing loss, mouth pain, mouth swelling, nasal discharge, nose bleeding, nose congestion, nose pain, photophobia, tearing, throat pain, throat swelling, voice changes, others Respiratory: denies: cough, hemoptysis, orthopnea, SOB at rest, shortness of breath, SOB with excertion, stridor, wheezing, others Cardiovascular: denies: chest pain, dizzy spells, diaphoresis, Dyspnea on exertion, edema, irregular heart beat, left arm pain, lightheadedness, palpitations, PND, syncope, others Gastrointestinal: denies: abdomen distended, abdominal pain, blood streaked bowels, constipated, diarrhea, dysphagia, difficulty swallowing, hematemesis, melena, nausea, poor appetite, poor fluid intake, rectal bleeding, rectal pain, vomiting, others Genitourinary: denies: burning, dysuria, flank pain, frequency, hematuria, incontinence, penile discharge, penile sore, pain, testicle pain, testicle swelling, urgency, others Neurological: reports: headache; denies: dizziness, fainting, left sided numbness, left sided weakness, numbness, paresthesia, pre-existing deficit, right sided numbness, right sided weakness, seizure, speech problems, tingling, tremors, weakness, others Musculoskeletal: denies: back pain, gout, joint pain, joint swelling, muscle pain, muscle stiffness, neck pain, others Integumetry: denies: bruises, change in color, change in hair/nails, dryness, laceration, lesions, lumps, rash, wounds, others Allergic/Immunocompromised: denies: Difficulty Healing, Frequent Infections, Hives, Itching, others Hematologic/Lymphatic: denies: anemia, blood clots, easy bleeding, easy bruising, swollen glands, others Endocrine: denies: excessive hunger, excessive sweating, excessive thirst, excessive urination, flushing, intolerance to cold, intolerance to heat, unexplained weight gain, unexplained weight loss, others Psychiatric: denies: anxiety, bipolar disorder, depression, hopeless, panic disorder, schizophrenia, sleepless, suicidal, others All Other Systems: Reviewed and Negative Physical Exam General Appearance: No Apparent Distress, Normal HEENT: PERRL/EOMI, Pharynx Normal, TM Abnormal (L) (ERYTHEMA AND DULL OF LEFT TM WITH EFFUSION, NO BLEEDING AND BLOOD CLOTS. ) Neck: Full Range of Motion, Non-Tender, Normal, Normal Inspection Respiratory: Chest Non-Tender, Lungs Clear, No Accessory Muscle Use, No Respiratory Distress, Normal Breath Sounds Cardiovascular: No Edema, No JVD, No Murmur, No Gallop, Normal Peripheral Pulses, Regular Rate/Rhythm Breast Exam: Deferred Gastrointestinal: No Organomegaly, Non Tender, No Pulsatile Mass, Normal Bowel Sounds, Soft Genitalia: Deferred Pelvic: Deferred Rectal: Deferred Extremities: No calf tenderness, Normal capillary refill, Normal inspection, Normal range of motion, Non-tender, No pedal edema Musculoskeletal : Apperance: Normal Neurologic: Alert, mathematical sciences professor II-XII nml as Tested, No Motor Deficits, Normal Affect, Normal Mood, No Sensory Deficits Cerebellar Function: Normal Reflexes: Normal Skin: Dry, Normal Color, Warm Peripheral Pulses: 2+ carotid (R), 2+ carotid (L) Lymphatic: No Adenopathy Was a procedure done? Was a procedure done?: No Differential Dx Considerations may include: AOM OF LEFT EAR, HEADACHE, UTI X-Ray, Labs, Meds, VS Vital Signs Date Time Temp Pulse Resp B/P (MAP) Pulse Ox O2 Delivery O2 Flow Rate FiO2 11/16/24 10:52 99.1 74 17 119/75 (90) 98 99.1 Lab Test 11/16/24 11:23 11/16/24 11:13 11/16/24 10:41 Range/Units White Blood Count 9.3 4.4-10.8 10^3/uL Red Blood Count 5.13 4.5-5.90 10^6/uL Hemoglobin 15.0 13.5-17.5 g/dL Hematocrit 44.6 41.0-53.0 % Mean Corpuscular Volume 86.9 80.0-100.0 fL Mean Corpuscular Hemoglobin 29.2 28.0-32.0 pg Mean Corpuscular Hemoglobin Concent 33.6 32.0-36.0 g/dL Red Cell Distribution Width 14.8 H 11.8-14.3 % Platelet Count 275 140-450 10^3/uL Mean Platelet Volume 7.0 6.9-10.8 fL Neutrophils (%) (Auto) 60.9 37.0-80.0 % Lymphocytes (%) (Auto) 28.7 10.0-50.0 % Monocytes (%) (Auto) 8.6 0.0-12.0 % Eosinophils (%) (Auto) 1.1 0.0-7.0 % Basophils (%) (Auto) 0.7 0.0-2.0 % Neutrophils # (Auto) 5.7 1.6-8.6 10 ^3/uL Lymphocytes # (Auto) 2.7 0.4-5.4 10 ^3/uL Monocytes # (Auto) 0.8 0-1.3 10 ^3/uL Eosinophils # (Auto) 0.1 0-0.8 10 ^3/uL Basophils # (Auto) 0.1 0-0.2 10 ^3/uL Nucleated Red Blood Cells 0.0 % Sodium Level 140 136-145 mmol/L Potassium Level 3.9 3.5-5.1 mmol/L Chloride Level 107 98-107 mmol/L Carbon Dioxide Level 26 20-31 mmol/L Anion Gap 7 5-15 Blood Urea Nitrogen 10 9-23 mg/dL Creatinine 0.86 0.700-1.30 mg/dL Glomerular Filtration Rate Calc 110 >90 mL/min BUN/Creatinine Ratio 11.6 10.0-20.0 Serum Glucose 103 74-106 mg/dL Lactic Acid Level 0.7 0.4-2.0 mmol/L Calcium Level 10.0 8.7-10.4 mg/dL Urine Color Light-yellow Yellow Urine Clarity Clear Clear Urine pH 7.5 5.0-9.0 Urine Specific [place] 1.018 1.001-1.035 Urine Protein Negative Negative Urine Ketones Negative Negative Urine Blood Negative Negative /uL Urine Nitrite 2+ H Negative Urine Bilirubin Negative Negative Urine Urobilinogen 2 H Negative mg/dL Urine Leukocyte Esterase 2+ Negative /uL Urine RBC 2 0 - 3 /hpf Urine Microscopic WBC 34 H 0-3 /HPF Urine Squamous Epithelial Cells Few <5 /hpf Urine Bacteria Few H None Seen /hpf Urine Mucus Few None Seen Urine Yeast (Budding) Few None Seen /hpf Urine Glucose Normal Normal mg/dL POC Glucose 109 H 70-106 mg/dl X-Ray, Labs, Meds, VS Comment EXTERNAL MEDICAL RECORDS REVIEWED: [NONE] INDEPENDENT HISTORIANS: [NONE] SOCIAL DETERMINANTS OF HEALTH: [NONE] LABS ORDERED: UA, BMP, CBC, LACTIC ACID REVIEWED AND INTERPRETED RESULTS: CT HEAD IMAGING ORDERED: CT HEAD TREATMENTS ORDERED: NONE PROCEDURES PERFORMED: NONE CRITICAL CARE TIME: NONE I HAVE DISCUSSED THE PATIENT WITH THE ATTENDING PHYSICIAN DR. METZGER AND HE AGREES WITH THE PATIENT'S PLAN OF CARE AND DISPOSITION. BASED ON HISTORY OF PRESENT ILLNESS, AND PHYSICAL EXAM, PATIENT WILL BE DISCHARGED HOME. DISCUSSED PLAN FOR DISCHARGE HOME WITH RX CORTISPORIN AND CIPROFLOXACIN. MEDICATION WARNINGS GIVEN. SHARED DECISION MAKING: DISCUSSED WITH PATIENT THAT THEIR WORKUP WAS NORMAL. PATIENT INSTRUCTED TO FOLLOW UP WITH PRIMARY CARE PROVIDER IN 1-2 DAYS FOR RE- EVALUATION OF SYMPTOMS. PATIENT VERBALIZES UNDERSTANDING TO RETURN TO ED FOR NEW OR WORSENING SYMPTOMS OR IF FOLLOW UP WITH PCP CANNOT BE OBTAINED. PATIENT FEELS COMFORTABLE GOING HOME AT THIS TIME. ALL QUESTIONS ADDRESSED AT TIME OF DISCHARGE.FOLLOW-UP WITH PCP IN 1 TO 2 DAYS. TAKE MEDICATIONS PRESCRIBED. RETURN TO ED FOR ANY NEW OR WORSENING SYMPTOMS. Time of 1ST Reevaluation: 12:26 Reevaluation 1ST: Improved Patient Education/Counseling: Diagnosis, Treatment, Need For Follow Up Family Education/Counseling: Diagnosis, Treatment, No Family Present Medical Screening: No EMC Exist At This Time SEPSIS Sepsis Screen Date sepsis recognized/suspect: Nov 16, 2024 Time Sepsis recognized/suspect: 1036 Recent Procedure: No On Antibiotic Therapy: No Respiratory Rate >20: No Heart Rate >90: No Temp<36 C (96.8 F) or >38.3 C: No SBP <90 or MAP <65 mmHG: No New Acute Mental Status Change: No Is the patient on CPAP, BIPAP,: No Physician Orders Head Without Contrast (7/17/25 11:13) Vital Signs Date Time Temp Pulse Resp B/P (MAP) Pulse Ox O2 Delivery O2 Flow Rate FiO2 11/16/24 10:52 99.1 74 17 119/75 (90) 98 99.1 Laboratory Tests Test 11/16/24 11:23 Lactic Acid Level 0.7 mmol/L (0.4-2.0) White Blood Count 9.3 10^3/uL (4.4-10.8) Departure 1 Departure Time of Disposition: 12:26 Impression: Primary Impression: Acute headache Qualified Codes: G44.209 - Tension-type headache, unspecified, not intractable Additional Impressions: Acute otitis media with effusion of left ear Acute UTI (urinary tract infection) Disposition: HOME / SELF CARE / HOMELESS Condition: Stable Additional Instructions: FOLLOW-UP WITH PCP IN 1 TO 2 DAYS. TAKE MEDICATIONS PRESCRIBED. RETURN TO ED FOR ANY NEW OR WORSENING SYMPTOMS. e-Prescriptions Ibuprofen (Ibuprofen) 800 Mg Tab 1 TAB PO TID, #30 TAB Prov: KRYSTLE GLASS 11/16/24 Ciprofloxacin Hcl (Cipro) 500 Mg Tab 1 TAB PO BID, #20 TAB Prov: KRYSTLE GLASS 11/16/24 Tlkqmazs-Oqbauzrmj-Wb (Otic) (Cortisporin Otic Susp) [address] 4 DROP EACH EAR TID, #10 ML Prov: KRYSTLE GLASS 11/16/24 Discharged With: Self Critical Care Note Critical Care Time?: No Stability Stability form required: No Heart Score Heart Score: Heart Score Response (Comments) Value History N/A 0 EKG N/A 0 Age N/A 0 Risk Factors N/A 0 Troponin N/A 0 Total 0 I personally scribed for KRYSTLE GLASS ([email or web address]) on 11/16/24 at 11:15. Electronically submitted by Ras Brennan ([email or web address]). I personally scribed for KRYSTLE GLASS ([email or web address]) on 11/16/24 at 12:22. Electronically submitted by Ras Brennan ([email or web address]). KRYSTLE GLASS Nov 16, 2024 11:15
[2024-11-16 11:34] LABS: Hematocrit 44.6 % (41.0-53.0); Hemoglobin 15.0 g/dL (13.5-17.5); Mean Corpuscular Hemoglobin 29.2 pg (28.0-32.0); Mean Corpuscular Volume 86.9 fL (80.0-100.0); Nucleated Red Blood Cells % 0.0 %
[2024-11-16 11:42] LABS: Potassium 3.9 mmol/L (3.5-5.1); Sodium 140 mmol/L (136-145)
[2024-11-16 11:43] LABS: Anion Gap 7 (5-15); Carbon Dioxide 26 mmol/L (20-31)
[2024-11-16 11:44] LABS: Calcium 10.0 mg/dL (8.7-10.4)
[2024-11-16 11:47] LABS: Chloride 107 mmol/L (98-107)
[2024-11-16 11:49] LABS: BUN/Creatinine Ratio 11.6 (10.0-20.0); Blood Urea Nitrogen 10 mg/dL (9-23); Glucose 103 mg/dL (74-106)
[2024-11-16 12:05] LABS: Urine Budding Yeast FEW /hpf (None Seen); Urine Protein, UAD Negative (Negative)
--- NOTE | 2024-11-16 12:17 | DVH ---
EXAM: CT HEAD WITHOUT CONTRAST INDICATION: FEVER AND HEADACHE TECHNIQUE: CT of the head without intravenous contrast. Coronal and sagittal reformatted images are s ubmitted. Radiation Dose : 1. Head: CT Dose: CTDI volume is 66.5 mGy. Dose-length product is 1174.9 mGy*cm The dose indicators for CT are the volume Computed Tomography (CT) Dose Index (CTDIvol) and the Dose Length Product (DLP), and are measured in units of mGy and mGy-cm, respectively. These indicators are not patient dose, but values generated from the CT scanner acquisition factors. The report includes radiation exposure data for exposures received during this examination. All CT scans at this medical facility are performed using dose modulation techniques as appropriate to a performed exam including the following: Automated exposure control was utilized; adjustment of the MA and/or KV according to patient size; and use of iterative reconstruction technique. COMPARISON: None FINDINGS: There is no evidence of acute intracranial hemorrhage, extra-axial collection, mass effect, midline s hift, herniation or hydrocephalus. The ventricles, sulci and cisterns are age appropriate. The pérez-white differentiation is intact. The visualized paranasal sinuses and mastoid air cells are clear. No depressed calvarial fracture. The surrounding soft tissues are unremarkable. IMPRESSION: 1. No evidence of acute intracranial abnormality.
[2024-11-16] MEDS ORDERED: COROSUS EACH EAR (12:22)
[2024-11-16] MEDS ORDERED: CIPR-173 PO (12:22)
[2024-11-16 12:45] VITALS: BP 119/75; PULSE 74; RESP 17; TEMP 99.1; O2SAT 98
== END 2024-11-16 12:46 | disposition home or self-care (01) ==
LOC: ER 10:18
DX: R51.9 Headache, unspecified (principal); H65.192 Other acute nonsuppurative otitis media, left ear; N39.0 Urinary tract infection, site not specified; Z88.0 Allergy status to penicillin; Z87.440 Personal history of urinary (tract) infections; Z79.1 Long term (current) use of non-steroidal anti-inflammatories (NSAID); Z79.899 Other long term (current) drug therapy
CPT/HCPCS: 36415; 70450; 80048; 81001; 82947; 82962; 83605; 85025